=== PATIENT | male | born 1990 | race Two or more races ===

== ENCOUNTER 2024-07-11 18:38 | Emergency (ER) | payer MEDICAID, SELFPAY ==
[2024-07-11 18:40] VITALS: BMI 36.9
[2024-07-11 19:27] VITALS: BP 145/84; PULSE 88; RESP 18; TEMP 37.1; O2SAT 100
--- NOTE | 2024-07-11 19:37 | PD.EDHEAD ---
ED Head Injury RME/HPI General Chief complaint: Head Injury Stated complaint: Head trauma, ladder fell and hit right side of hea Time Seen by Provider: 07/11/24 19:26 Arrival date/time: 07/11/24 18:38 This is a 34-year-old male that comes in with complaints of a head injury. Patient states that he was picking fruit and the ladder fell on him. Patient has a small laceration to the right side of his head. Patient had no loss of consciousness. Patient denies any nausea vomiting. Patient does not remember the last time he had tetanus shot. Limitations: no limitations Related Data Previous Rx's ?Medication ?Instructions ?Recorded naproxen 500 mg tablet (Naprosyn) 500 mg PO BIDWM #20 tabs 06/27/17 ibuprofen 800 mg tablet 800 mg PO Q6H PRN pain #10 tabs 07/11/24 Allergies Allergy/AdvReac Type Severity Reaction Status Date / Time NKA* Allergy Uncoded 06/27/17 09:49 Review of Systems Review of Systems Systems Reviewed: All systems reviewed, normal except as documented Past Medical History Past Medical History CARDIAC: Negative Congestive Heart Failure RESPIRATORY: Negative Chronic Obstructive Pulmonary Disease (COPD) GENITOURINARY: Negative Renal Disease ENDOCRINE: Negative Diabetes Mellitus Type 1 or Diabetes Mellitus Type 2 Social History SMOKING STATUS: Current some day smoker Travel History EBOLA RISK: No ED Exam General Limitations: Present no limitations General appearance: Present alert and in no apparent distress Head Head exam: Present other (Small approximately 0.5cm laceration to right parietal area) Eye Eye exam: Present normal appearance, PERRL and EOMI ENT ENT exam: Present normal exam, normal oropharynx and mucous membranes moist Neck Neck exam: Present normal inspection, full ROM and trachea midline Chest Chest inspection: Present normal inspection and symmetric chest wall rise Respiratory Respiratory exam: Present normal lung sounds bilaterally Cardiovascular Cardiovascular exam: Present regular rate and normal rhythm Abdominal Exam Abdominal exam: Present soft Extremities Exam Extremities exam: Present normal inspection and full ROM Back Exam Back exam: Present normal inspection and full ROM Neurological Exam Neurological exam: Present alert, oriented X3 and CN II-XII intact Psychiatric Psychiatric exam: Present normal affect and normal mood Skin Skin exam: Present warm, dry, intact and normal color Course Quality Measures none Orders Category Date Time Status Acetaminophen Tab [Tylenol ES Tab] Med 07/11/24 20:08 Discontinued 1,000 mg PO X1 ONE Ibuprofen Tab [Motrin Tab] Med 07/11/24 20:08 Discontinued 800 mg PO X1 ONE Tet,Diphth,Pertuss(Acell)-Tdap [Boostrix Vacc] Med 07/11/24 19:38 Discontinued 0.5 ml IMI .ONCE ONE Vital Signs Vital signs: Vital Signs Temperature 98.8 F 07/11/24 19:27 Pulse Rate 88 07/11/24 19:27 Respiratory Rate 18 07/11/24 19:27 Blood Pressure 145/84 H 07/11/24 19:27 Pulse Oximetry (%) 100 07/11/24 19:27 Oxygen Delivery Method Room Air 07/11/24 19:27 Head Injury MDM Narrative MDM Narrative:: one staple placed to right scalp parietal area. Patient tolerated procedure well. Bleeding controlled. Patient told to keep wound clean and dry. Patient told to have kip removed in 1 week. Come back to the emergency room if symptoms change or worsen. Patient data External records reviewed:: [facility] previous records Clinical information provided by:: patient Social determinants that could affect healthcare access:: none Patient has the following chronic illnesses:: None How is presenting disease/condition affected by chronic disease/condition?: no chronic disease Evaluation data The following diagnostics were reviewed and interpreted by me:: other (specify) (None) Lab and/or radiology exams considered but not ordered:: None Interpretation Summary: n/a Medications / Prescriptions Medications or Prescriptions considered but not ordered:: none Medication administrations:: Medication Administration History Discontinued Medications Acetaminophen (Acetaminophen 500 Mg Tablet) 1,000 mg PO X1 ONE Stop: 07/11/24 20:09 Last Admin: 07/11/24 20:21 Dose: 1,000 mg Documented By: UNIQUE Diphtheria/Tetanus/Acell Pertussis (Diphth,Pertuss(Acell),Tet Vac 0.5 Ml Vial) 0.5 ml IMi .ONCE ONE Stop: 07/11/24 19:39 Last Admin: 07/11/24 19:43 Dose: 0.5 ml Documented By: KARLI Ibuprofen (Ibuprofen Tab 400 Mg Tablet) 800 mg PO X1 ONE Stop: 07/11/24 20:09 Last Admin: 07/11/24 20:21 Dose: 800 mg Documented By: UNIQUE [facility] Consultations Consultation(s) initiated? (list below): No Diagnosis Differential diagnosis head injury: concussion without loss of consciousness, closed head injury, subarachnoid hematoma and other (laceration ) Most likely diagnosis given after review of the tests above:: scalp laceration Admission Indicated Admission indicated?: not indicated Admission Request Was there a request for admission?: No Disposition Plan Disposition Plan: Discharge Discharge Attestation Discharge Attestation: The patient and all family members were given an opportunity to ask questions and understood the discharge instructions. Discharge instructions specifically effects, indications for sooner follow up or return to the emergency department, and the expected course of current diagnosis. Patient condition: Stable Discharge Plan Plan Patient Disposition: HOME (Self Care) Patient condition on transfer: Stable Prescriptions/Referrals Prescriptions/Med Rec: New ibuprofen 800 mg tablet 800 mg PO Q6H PRN (Reason: pain) Qty: 10 0RF No Action naproxen [Naprosyn] 500 MG tablet 500 mg PO BIDWM Qty: 20 0RF Rx Instructions: PRN PAIN Problem List Clinical Impression: Laceration of scalp Patient/Caregiver Discharge Instructions Discharge Activity: activity as tolerated Education Materials: ED Head Injury (Adult) Additional Instructions: Follow up with primary provider in 1-2 days. Come back to ED if symptoms change or worsen. May have staple removed in 1 week. Come back to the emergency room if symptoms change or worsen. Print Language: Macedonian Stand Alone Forms: [facility] Award Info., Patient Portal Info Letter KARLA/TIMO Supervising Physician KARLA/TIMO Supervising Physician: BRITANY
[2024-07-11] MEDS: DIPHTH,PERTUSS(ACELL),TET VAC 0.5 ML VIAL IMi (19:43)
[2024-07-11] MEDS: IBUPROFEN TAB 400 MG TABLET 800 MG PO (20:21)
[2024-07-11] MEDS: ACETAMINOPHEN 500 MG TABLET 1000 MG PO (20:21)
== END 2024-07-11 20:24 | disposition home or self-care (01) ==
PROVIDERS: Emergency Provider Emergency Medicine
DX: S01.01XA Laceration without foreign body of scalp, initial encounter (principal); Z23 Encounter for immunization; W20.8XXA Other cause of strike by thrown, projected or falling object, initial encounter
CPT/HCPCS: 90471; 90715; 99282; A9270